=== PATIENT | male | born 1950 | race Caucasian/White ===

== ENCOUNTER 2018-04-12 07:40 | Day surgery (SDC) | payer MEDICARE, OTHER ==
[2018-04-12] MEDS ORDERED: PROPOFOL 60 ML (10:10)
[2018-04-12] MEDS ORDERED: LIDOCAINE 2% (SDV) 5 ML INJ (10:10)
== END 2018-04-12 12:55 | disposition home or self-care (01) ==
LOC: GIL 07:40
DX: R19.4 Change in bowel habit (principal); K64.8 Other hemorrhoids; D12.6 Benign neoplasm of colon, unspecified; E11.9 Type 2 diabetes mellitus without complications; I10 Essential (primary) hypertension; E78.5 Hyperlipidemia, unspecified; E66.9 Obesity, unspecified; Z68.25 Body mass index [BMI] 25.0-25.9, adult
CPT/HCPCS: 45380; 82962; 88305